=== PATIENT | female | born 1985 | race Two or more races ===

== ENCOUNTER 2019-07-26 08:04 | Inpatient (IN) | payer MEDICAID ==
[~2019-07-26] VITALS: Ht 152.4 cm; Wt 80.7 kg
[2019-07-26] MEDS ORDERED: IV RINGERS,LACTATED 500ML 500 ML IV PRN (09:00)
[2019-07-26] MEDS ORDERED: 0.9 % SODIUM CHLORIDE 10 ML DISP.SYRIN. IV PRN ×3 (09:00→16:30)
[2019-07-26 10:49] LABS: BILIRUBIN,URINE NEGATIVE (NEG); CLARITY,URINE CLEAR; COLOR,URINE YELLOW; NITRITE,URINE NEGATIVE (NEG); PH,URINE 6.5; PROTEIN,URINE NEGATIVE (NEG-TRACE)
[2019-07-26] MEDS ORDERED: OXYTOCIN 30 UNIT/500 ML PREMIX 500 ML IV PRN ×3 (11:00→16:30)
[2019-07-26] MEDS ORDERED: IBUPROFEN 400 MG TABLET. PO PRN (11:00)
[2019-07-26] MEDS ORDERED: fentaNYL PF VIAL 100 MCG/2 ML VIAL IV PRN (11:00)
[2019-07-26] MEDS ORDERED: TERBUTALINE 1 MG/ML VIAL. SQ PRN (11:00)
[2019-07-26] MEDS ORDERED: CITRIC ACID/SODIUM CITRATE 30 ML SOLUTION. PO ONE (11:00)
[2019-07-26] MEDS ORDERED: LIDOCAINE 1% PF 30 ML VIAL. INJ PRN (11:00)
[2019-07-26 11:05] LABS: SQUAMOUS EPITHELIAL CELL,UR MOD /LPF
[2019-07-26 11:06] LABS: BASO % 0 % (0-3); EOS % 0 % (0-3); HEMATOCRIT 35.6 % (36.0-47.0); HEMOGLOBIN 11.6 g/dL (12.0-15.5); LYMPH # 1.6 x10^3/uL (1.0-4.8); LYMPH % 26 % (24-48); MEAN CORPUSCULAR HEMOGLOBIN 26 pg (25-35); MEAN CORPUSCULAR HGB CONC 33 g/dL (31-37); MEAN CORPUSCULAR VOLUME 79 fL (79-100); MONO # 0.3 x10^3/uL (0.0-1.1); MONO % 5 % (0-9); NEUT # 4.2 x10^3/uL (1.8-7.7); NEUT % 69 % (31-73); PLATELET COUNT 137 x10^3/uL (140-400); RED BLOOD COUNT 4.51 x10^6/uL (3.50-5.40); RED CELL DISTRIBUTION WIDTH 17.3 % (11.5-14.5); WHITE BLOOD COUNT 6.1 x10^3/uL (4.0-11.0)
[2019-07-26 11:06] LABS: BACTERIA,URINE FEW /HPF (0-FEW); RBC,URINE OCC /HPF (0-2)
[2019-07-26 11:07] LABS: YEAST,URINE PRESENT /HPF
[2019-07-26] MEDS ORDERED: AMPICILLIN SODIUM 2 GM in IV NORMAL SALINE 100ML 100 ML IV ONE (11:30)
[2019-07-26 12:54] LABS: ANISOCYTOSIS SLIGHT; PLT ESTIMATE DECREASED (ADEQUATE)
[2019-07-26 13:51] VITALS: BP 129/84
[2019-07-26] MEDS ORDERED: MORPHINE PF 10 MG/10 ML AMPUL. ONE (15:09)
[2019-07-26] MEDS ORDERED: OXYTOCIN 10 UNIT/ML VIAL. ONE (15:09)
[2019-07-26] MEDS ORDERED: PHENYLEPHRINE in 0.9% NACL PF 1 MG/10 ML SYRINGE. IV ONE (15:10)
[2019-07-26] MEDS ORDERED: fentaNYL PF VIAL 100 MCG/2 ML VIAL ONE (15:10)
[2019-07-26] MEDS ORDERED: KETOROLAC 30 MG/ML VIAL. IV PRN (15:15)
[2019-07-26] MEDS: AMPICILLIN SODIUM 1 GM in IV NORMAL SALINE 50ML 50 ML IV SCH ×2 (15:30→19:30)
[2019-07-26] MEDS ORDERED: ONDANSETRON PF 4 MG/2 ML VIAL. ONE (16:12)
--- NOTE | 2019-07-26 16:22 | PDOC ---
BRIEF OPERATIVE NOTE Pre-Op Diagnosis TIUP RLTC/S Post-Op Diagnosis Same Procedure Performed RLTC/S Surgeon Siobhan Rayon Winder None Anesthesia Type: General Blood Loss 800cc Specimens Obtained None Findings male 7#8oz Complications None ANTOINETTE CLEMENT MD Jul 26, 2019 16:22
[2019-07-26] MEDS ORDERED: MAGNESIUM HYDROXIDE 2,400 MG/30 ML ORAL.SUSP. PO PRN (16:30)
[2019-07-26] MEDS ORDERED: MMR per PROTOCOL. MC PRN (16:30)
[2019-07-26] MEDS ORDERED: ZOLPIDEM 5 MG TABLET. PO PRN (16:30)
[2019-07-26] MEDS ORDERED: diphenhydrAMINE ORAL ELIXIR 12.5 MG/5 ML ML PO PRN (16:30)
[2019-07-26] MEDS ORDERED: MAG HYDROX/ALUMINUM HYD/SIMETH 30 ML ORAL.SUSP PO PRN (16:30)
[2019-07-26] MEDS ORDERED: ONDANSETRON PF 4 MG/2 ML VIAL. IV PRN (16:30)
[2019-07-26] MEDS ORDERED: SIMETHICONE 80 MG TAB.CHEW PO PRN (16:30)
[2019-07-26] MEDS: FERROUS SULFATE 325 MG TABLET. PO SCH (17:00)
[2019-07-26] MEDS: IV RINGERS,LACTATED 1000ML 1,000 ML IV SCH ×2 (18:52→20:24)
[2019-07-26 21:30] VITALS: BP 122/80
[2019-07-26] MEDS ORDERED: ceFAZolin SODIUM 1 GM in IV DEXTROSE 5% 50 ML IV SCH (22:00)
[2019-07-26] MEDS: IBUPROFEN 400 MG TABLET. PO SCH (22:00)
[2019-07-26 22:30] VITALS: BP 113/70
[2019-07-26] MEDS: ceFAZolin SODIUM IV Push 1 GM VIAL. IVP SCH (23:42)
[2019-07-27] MEDS: IV RINGERS,LACTATED 1000ML 1,000 ML IV SCH ×3 (02:52→15:30)
[2019-07-27] MEDS: IBUPROFEN 400 MG TABLET. PO SCH ×3 (05:11→15:08)
[2019-07-27 05:14] LABS: BASO % 0 % (0-3); EOS % 0 % (0-3); HEMATOCRIT 29.1 % (36.0-47.0); HEMOGLOBIN 9.5 g/dL (12.0-15.5); LYMPH # 1.5 x10^3/uL (1.0-4.8); LYMPH % 21 % (24-48); MEAN CORPUSCULAR HEMOGLOBIN 26 pg (25-35); MEAN CORPUSCULAR HGB CONC 33 g/dL (31-37); MEAN CORPUSCULAR VOLUME 79 fL (79-100); MONO # 0.4 x10^3/uL (0.0-1.1); MONO % 6 % (0-9); NEUT # 5.2 x10^3/uL (1.8-7.7); NEUT % 72 % (31-73); PLATELET COUNT 106 x10^3/uL (140-400); RED CELL DISTRIBUTION WIDTH 18.1 % (11.5-14.5); WHITE BLOOD COUNT 7.2 x10^3/uL (4.0-11.0)
[2019-07-27 05:30] VITALS: BP 117/65
[2019-07-27] MEDS: ceFAZolin SODIUM IV Push 1 GM VIAL. IVP SCH ×2 (07:51→16:10)
[2019-07-27 07:56] VITALS: BP 105/61
[2019-07-27] MEDS: oxyCODONE/APAP 5/325 1 TAB TABLET PO PRN ×2 (08:35→20:01)
[2019-07-27] MEDS: FERROUS SULFATE 325 MG TABLET. PO SCH ×2 (10:22→16:59)
[2019-07-27] MEDS: DOCUSATE SODIUM 100 MG CAPSULE. PO PRN ×2 (10:22→16:59)
[2019-07-27 12:27] VITALS: BP 130/75
[2019-07-27] MEDS ORDERED: DIPHTH,PERTUSS(ACELL),TET TOX 0.5 ML DISP.SYRIN. VAX IM ONE (12:30)
[2019-07-27] MEDS ORDERED: FLU VAX QS 2019-20 (36MOS+)/PF 0.5 ML SYRINGE. VAX IM ONE (13:00)
--- NOTE | 2019-07-27 13:28 | PDOC ---
Provider Note Provider Note No complaints VSS Dressing CDI FU in AM Vital Sign - Last 24 Hours 07/26/19 07/26/19 07/26/19 07/26/19 13:51 21:30 21:30 22:30 Temp 98.4 99.0 98.6 98.4 99.0 98.6 Pulse 92 94 96 Resp 18 14 14 B/P (MAP) 129/84 (99) 122/80 (94) 113/70 (84) Pulse Ox 99 99 O2 Delivery Room Air Room Air Room Air 07/27/19 07/27/19 07/27/19 07/27/19 05:30 07:56 08:35 09:21 Temp 98.8 98.7 98.8 98.7 Pulse 99 103 Resp 16 16 16 B/P (MAP) 117/65 (82) 105/61 (76) Pulse Ox 98 97 97 O2 Delivery Room Air Room Air Room Air Room Air 07/27/19 07/27/19 12:02 12:27 Temp 97.7 97.7 Pulse 80 Resp 16 18 B/P (MAP) 130/75 (93) Pulse Ox 97 97 O2 Delivery Room Air Room Air Intake and Output 07/26/19 07/26/19 07/27/19 15:00 23:00 07:00 Intake Total 400 ml Output Total 800 ml Balance -400 ml CBC - BMP 07/27/19 04:15 ANTOINETTE CLEMENT MD Jul 27, 2019 13:28
[2019-07-27 15:28] VITALS: BP 126/60
[2019-07-27 19:50] VITALS: BP 133/90
[2019-07-27 23:17] VITALS: BP 141/84
[2019-07-28] MEDS: IBUPROFEN 400 MG TABLET. PO SCH ×3 (01:23→19:45)
[2019-07-28] MEDS: oxyCODONE/APAP 5/325 1 TAB TABLET PO PRN ×5 (01:23→22:51)
[2019-07-28 05:25] VITALS: BP 138/91
[2019-07-28] MEDS: DOCUSATE SODIUM 100 MG CAPSULE. PO PRN ×2 (05:26→17:39)
[2019-07-28] MEDS: FERROUS SULFATE 325 MG TABLET. PO SCH ×2 (08:25→17:39)
[2019-07-28 10:28] VITALS: BP 145/87
--- NOTE | 2019-07-28 11:53 | PDOC ---
OB Progress Note Date of Service 07/28/19 Time of Evaluation 1150 Notes Pt. feeling well. No complaints. Lab Laboratory Tests Test 07/27/19 04:15 White Blood Count 7.2 x10^3/uL (4.0-11.0) Red Blood Count 3.70 x10^6/uL (3.50-5.40) Hemoglobin 9.5 g/dL (12.0-15.5) Hematocrit 29.1 % (36.0-47.0) Mean Corpuscular Volume 79 fL (79-100) Mean Corpuscular Hemoglobin 26 pg (25-35) Mean Corpuscular Hemoglobin Concent 33 g/dL (31-37) Red Cell Distribution Width 18.1 % (11.5-14.5) Platelet Count 106 x10^3/uL (140-400) Neutrophils (%) (Auto) 72 % (31-73) Lymphocytes (%) (Auto) 21 % (24-48) Monocytes (%) (Auto) 6 % (0-9) Eosinophils (%) (Auto) 0 % (0-3) Basophils (%) (Auto) 0 % (0-3) Neutrophils # (Auto) 5.2 x10^3/uL (1.8-7.7) Lymphocytes # (Auto) 1.5 x10^3/uL (1.0-4.8) Monocytes # (Auto) 0.4 x10^3/uL (0.0-1.1) Eosinophils # (Auto) 0.0 x10^3/uL (0.0-0.7) Basophils # (Auto) 0.0 x10^3/uL (0.0-0.2) Medications Current Medications Sodium Chloride (Normal Saline Flush) 3 ml QSHIFT PRN IV AFTER MEDS AND BLOOD DRAWS; Start 07/26/19 at 09:00; Stop 07/27/19 at 09:43; Status DC Ringer's Solution 500 ml @ 500 mls/hr PRN 1X PRN IV CALL MD IF GIVEN; Start 07/26/19 at 09:00 Sodium Chloride (Normal Saline Flush) 3 ml QSHIFT PRN IV AFTER MEDS AND BLOOD DRAWS; Start 07/26/19 at 11:00; Stop 07/27/19 at 09:43; Status DC Ringer's Solution 1,000 ml @ 125 mls/hr Q8H IV Last administered on 07/27/19at 15:30; Start 07/26/19 at 10:52 Fentanyl Citrate (Fentanyl 2ml Vial) 100 mcg PRN Q30MIN PRN IV Severe pain; Start 07/26/19 at 11:00 Terbutaline Sulfate (Brethine) 0.25 mg 1X PRN PRN SQ SEE COMMENTS; Start 07/26/19 at 11:00; Stop 07/27/19 at 10:59; Status DC Lidocaine HCl (Xylocaine 1% Pf 30ml Vial) 30 ml 1X PRN PRN INJ SEE COMMENTS; Start 07/26/19 at 11:00; Stop 07/28/19 at 10:59; Status DC Oxytocin/Sodium Chloride 500 ml @ 0 mls/hr CONT PRN IV SEE I/O RECORD; Start 07/26/19 at 11:00; Stop 07/28/19 at 10:25; Status DC Oxytocin/Sodium Chloride 500 ml @ 0 mls/hr CONT PRN PRN IV Post delivery bleeding; Start 07/26/19 at 11:00 Ibuprofen (Motrin) 800 mg PRN Q6HRS PRN PO PAIN; Start 07/26/19 at 11:00; Stop 07/28/19 at 10:25; Status DC Cefazolin Sodium/ Dextrose 50 ml @ 100 mls/hr 1X ONCE IV Last administered on 07/26/19at 15:09; Start 07/26/19 at 11:00; Stop 07/26/19 at 11:29; Status DC Citric Acid/ Sodium Citrate (Bicitra) 30 ml 1X ONCE PO Last administered on 07/26/19at 15:05; Start 07/26/19 at 11:00; Stop 07/26/19 at 11:06; Status DC Ampicillin Sodium 2 gm/Sodium Chloride 100 ml @ 200 mls/hr 1X ONCE IV Last administered on 07/26/19at 11:57; Start 07/26/19 at 11:30; Stop 07/26/19 at 11:59; Status DC Ampicillin Sodium 1 gm/Sodium Chloride 50 ml @ 100 mls/hr Q4H IV ; Start 07/26/19 at 15:30; Stop 07/26/19 at 22:17; Status DC Oxytocin (Pitocin) 10 unit STK-MED ONCE .ROUTE ; Start 07/26/19 at 15:09; Stop 07/26/19 at 15:09; Status DC Morphine Sulfate (Morphine Preservative Free) 10 mg STK-MED ONCE .ROUTE ; Start 07/26/19 at 15:09; Stop 07/26/19 at 15:10; Status DC Fentanyl Citrate (Fentanyl 2ml Vial) 100 mcg STK-MED ONCE .ROUTE ; Start 07/26/19 at 15:10; Stop 07/26/19 at 15:10; Status DC Ephedrine Sulfate (Akovaz) 50 mg STK-MED ONCE .ROUTE ; Start 07/26/19 at 15:10; Stop 07/26/19 at 15:10; Status DC Phenylephrine HCl (PHENYLEPHRINE in 0.9% NACL PF) 1 mg STK-MED ONCE IV ; Start 07/26/19 at 15:10; Stop 07/26/19 at 15:10; Status DC Ketorolac Tromethamine (Toradol 30mg Vial) 30 mg PRN Q6HRS PRN IV PAIN; Start 07/26/19 at 15:15; Stop 07/31/19 at 15:14 Ondansetron HCl (Zofran) 4 mg STK-MED ONCE .ROUTE ; Start 07/26/19 at 16:12; Stop 07/26/19 at 16:12; Status DC Sodium Chloride (Normal Saline Flush) 3 ml QSHIFT PRN IV AFTER MEDS AND BLOOD DRAWS; Start 07/26/19 at 16:30 Oxytocin/Sodium Chloride 500 ml @ 125 mls/hr CONT PRN IV EXCESSIVE POST- BLEEDING; Start 07/26/19 at 16:30; Stop 07/27/19 at 00:29; Status DC Ibuprofen (Motrin) 800 mg Q8HRS PO Last administered on 07/28/19at 10:28; Start 07/26/19 at 22:00 Ondansetron HCl (Zofran) 4 mg PRN Q6HRS PRN IV NAUSEA/VOMITING; Start 07/26/19 at 16:30 Docusate Sodium (Colace) 100 mg PRN BID PRN PO HARD STOOLS Last administered on 07/28/19at 05:26; Start 07/26/19 at 16:30 Magnesium Hydroxide (Milk Of Magnesia) 2,400 mg PRN DAILY PRN PO CONSTIPATION; Start 07/26/19 at 16:30 Al Hydroxide/Mg Hydroxide (Mylanta Plus Xs) 30 ml PRN Q4HRS PRN PO HEARTBURN / GAS; Start 07/26/19 at 16:30 Simethicone (Gas-X) 80 mg PRN AFTMEALHC PRN PO GAS / BLOATING Last administered on 07/27/19at 20:01; Start 07/26/19 at 16:30 Diphenhydramine HCl (Benadryl Oral Elixir) 12.5 mg PRN Q6HRS PRN PO ITCHING; Start 07/26/19 at 16:30 Ferrous Sulfate (Feosol) 325 mg BIDWMEALS PO Last administered on 07/28/19at 08:25; Start 07/26/19 at 17:00 Zolpidem Tartrate (Ambien) 5 mg PRN QHS PRN PO INSOMNIA, MAY REPEAT X1; Start 07/26/19 at 16:30 Info (Do NOT chart on this placeholder) 1 ea PRN 1X PRN MC SEE COMMENTS; Start 07/26/19 at 16:30 Info (Do NOT chart on this placeholder) 1 ea PRN 1X PRN MC SEE COMMENTS; Start 07/26/19 at 16:30 Oxycodone/ Acetaminophen (Percocet 5/325) 1 tab PRN Q4HRS PRN PO MILD PAIN 1-3 Last administered on 07/28/19at 10:27; Start 07/26/19 at 16:30 Oxycodone/ Acetaminophen (Percocet 5/325) 2 tab PRN Q4HRS PRN PO MODERATE PAIN, SEVERE PAIN Last administered on 07/28/19at 05:25; Start 07/26/19 at 16:30 Cefazolin Sodium 1 gm/Dextrose 50 ml @ 100 mls/hr Q8HRS IV ; Start 07/26/19 at 22:00; Status UNV Cefazolin Sodium (Ancef) 1 gm Q8H IVP Last administered on 07/27/19at 16:10; Start 07/26/19 at 23:00; Stop 07/27/19 at 15:01; Status DC Influenza Virus Vaccine Quadrival (Afluria Quad 2019-20 (3yr Up) Syringe) 0.5 ml ONCE ONCE VAX IM Last administered on 07/27/19at 15:07; Start 07/27/19 at 13:00; Stop 07/27/19 at 13:01; Status DC Diphtheria/ Tetanus/Acell Pertussis (Boostrix) 0.5 ml ONCE ONCE VAX IM Last administered on 07/27/19at 15:04; Start 07/27/19 at 12:30; Stop 07/27/19 at 12:31; Status DC Exam Abd: soft, non tender, fundus firm Prevena in place Assessment POD#2 s/p c/s Plan of Care: Continue current Tx, Mgmt KASHIF VALENTE Jr, MD Jul 28, 2019 11:53
[2019-07-28 17:43] VITALS: BP 120/73
[2019-07-28 20:21] VITALS: BP 118/80
[2019-07-29] MEDS: IBUPROFEN 400 MG TABLET. PO SCH ×2 (05:25→16:56)
[2019-07-29] MEDS: oxyCODONE/APAP 5/325 1 TAB TABLET PO PRN ×3 (05:25→21:58)
[2019-07-29] MEDS: DOCUSATE SODIUM 100 MG CAPSULE. PO PRN ×2 (05:26→16:56)
[2019-07-29 05:51] VITALS: BP 113/72
[2019-07-29 13:13] VITALS: BP 136/85
--- NOTE | 2019-07-29 17:12 | NUR ---
DISCHARGE DISCHARGE AND INCISIONAL CARE INSTRUCTIONS GIVEN AT THIS TIME PER BRAND MANAGER PHONE #[phone]. NO QUESTIONS OR CONCERNS NOTED. TO FOLLOW UP WITH DR CLEMENT IN 1 WEEK. WAITING FOR BABY TO BE DISCHARGED WILL CONTINUE TO MONITOR
[2019-07-29 21:00] VITALS: BP 119/69
[2019-07-30 04:30] VITALS: BP 133/79
[2019-07-30] MEDS: IBUPROFEN 400 MG TABLET. PO SCH (04:33)
[2019-07-30] MEDS: oxyCODONE/APAP 5/325 1 TAB TABLET PO PRN (04:34)
[2019-07-30] MEDS: DOCUSATE SODIUM 100 MG CAPSULE. PO PRN (08:09)
[2019-07-30] MEDS: FERROUS SULFATE 325 MG TABLET. PO SCH (08:09)
[2019-07-30 08:45] VITALS: BP 137/84
--- NOTE | 2019-07-30 09:13 | PDOC3 ---
OB DISCHARGE SUMMARY DATE OF ADMISSION: 07/27/19 DATE OF DISCHARGE: 07/30/19 REASON FOR ADMISSION: Onset of labor INTRAPARTUM PROCEDURES: : Low Cerv Trans DISCHARGE DIAGNOSIS: Term Delivered DISCHARGE INFORMATION: Activity (ad christine ), Diet (regular), Instructions (pelvic rest x 6 wks, no driving x 2 wks, no lifting> 20lbs. x 4 wks) HOSPITAL COURSE Term gestation with previous section presented in labor. She had repeat section without complications. KASHIF VALENTE Jr, MD Jul 30, 2019 09:13
[2019-07-30] MEDS ORDERED: DOCU100C28 PO (09:15)
[2019-07-30] MEDS ORDERED: FERR325T72 PO (09:15)
[2019-07-30] MEDS ORDERED: OXYC1TAB15 PO (09:15)
[2019-07-30] MEDS ORDERED: NAPR-514 PO (09:15)
--- NOTE | 2019-07-30 09:16 | DISCH ---
DISCHARGE INSTRUCTIONS Condition on Discharge Condition on Discharge: Stable Activity After Discharge Activity Instructions for Disc: Activity as tolerated Lifting Instructions after Dis: No heavy lifting Driving Instructions after Dis: No driving for 2 weeks Diet after Discharge Diet after Discharge: Regular Contacting the DRAide after DC Call your doctor for: Concerns you may have Follow-Up Follow up with: Dr. Mccann in 1 week KASHIF VALENTE Jr, MD Jul 30, 2019 09:16
[2019-07-30 11:00] VITALS: BP 121/89
--- NOTE | 2019-07-30 11:00 | NUR ---
Discharge medications reviewed through [facility] communications equipment operator #[id number]. Prescriptions given to patient. Pt in stable condition. Up and about. Pain controlled with PO meds, denies pain at present. Voiding and stooling. Tolerating food and fluids. Cesearean insicion clean and dry, well approximated. Fundus firm, lochia scant. Bonding well with .
--- NOTE | 2019-07-30 12:00 | NUR ---
ID checked. Discharged per WC with . Accompanied by and other family member. Escorted to car by nursing personnel.
--- NOTE | 2019-08-03 20:48 | PDOC1 ---
OB - History Hx of Present Care: Good Care Ultrasounds: Normal mid trimester US Obstetrical Complications: None Medical Complications: None Past Family/Social History * Past Medical, Surgical, Family and Obstetric Histories reviewed from chart. Blood Type: O+ Rubella: Immune RPR/VDRL: Negative GBS Status: Positive HBsAG: Negative OB - Chief Complaint & HPI Date of Admission: Date of Admission: Jul 26, 2019 at 08:04 Chief Complaint/History : 7 Para: 6 EDC: Jul 20, 2019 Reason for admission: section Indication for : desires repeat Admission Nurse Assessment Rev: Yes OB - Admission Exam Physical Exam HEENT: Normal, Nasal Mucosa Normal, Oropharynx Normal, Moist Membranes, Fontanelles Normal Heart: Regular Rate Lungs: Clear, Equal Abdomen: Gravid Extremities: Normal Pulses, No tenderness or swelling Reflexes: Normal Cervical Dilatation: None Effacement: 0% Station: Ballotable Membranes: Intact Heart Rate: Normal Accelerations: Accelerations Present Contractions on Admission: None Assessment/Plan Assessment/Plan TIUP Desires C/S ANTOINETTE CLEMENT MD Aug 03, 2019 20:48
--- NOTE | 2019-08-03 22:42 | OP ---
DATE OF SURGERY: 07/26/2019 PREOPERATIVE DIAGNOSES: Term intrauterine , desires repeat . POSTOPERATIVE DIAGNOSES: Term intrauterine , desires repeat . PROCEDURE: Repeat low transverse . SURGEON: Jayy Mccann MD MAP AND CHART MOUNTER: None. ANESTHESIA: Regional. ESTIMATED BLOOD LOSS: 800 mL. FINDINGS: Male , Apgars 8, 9 and 9; weight 7 pounds 8 ounces. COMPLICATIONS: None. CONDITION: Stable. SPECIMENS: None. DESCRIPTION OF PROCEDURE: After risks, benefits, indications, alternatives discussed in detail with the patient, the patient was brought to OR theater, placed in the supine position with left lateral uterine displacement. After adequate regional anesthesia, the patient was prepped and draped in usual sterile manner. Pfannenstiel incision was incised sharply with Bovie cautery, carried down through subcutaneous tissue with Bovie cautery. Rectus fascia was nicked in midline and extended laterally in each direction with Bovie cautery. Upper edge of rectus fascia was grasped x 2 with Chanell clamps. Rectus muscle both bluntly and sharply with gloved hand and Bovie cautery. The same procedure was performed on lower edge of rectus fascia. Rectus muscle was split in the midline, extended superiorly and inferiorly with Bovie cautery with care not to injure any underlying structures. Parietal peritoneum was entered bluntly with gloved hand. With gentle stretch on rectus muscle, room was made for delivery of the . Benigno retractor was placed within the pelvic cavity. Sponges placed in the gutters bilaterally. Low transverse hysterotomy incision was made sharply with a scalpel with care not to injure any underlying structures. This incision was extended laterally and upwardly with gloved hand. Gloved hand was placed within the lower uterine segment. Membranes had been ruptured. head was elevated with fundal pressure from the assistant restaurant general manager. was delivered on anterior abdominal wall. cried spontaneously with all extremities. Cord was doubly clamped, transected cord between 2 clamps. was handed to nursing care in attendance. Cord blood samples were taken, placenta delivered spontaneously intact, 3-vessel cord. Uterus was wiped free of any adherent membranes. The low transverse hysterotomy incision was reapproximated with 0 Monocryl in a running locking manner, imbricated with 0 Monocryl vertical mattress stitch fashion. Bladder flap was reapproximated with 3-0 Vicryl in a running manner. Sponges were removed from the gutters. Gutters were clean and dry. Benigno retractor was removed. Lower uterine segment was once again inspected and noted to be hemostatic. Rectus muscles reapproximated in the midline with 3-0 Vicryl horizontal mattress stitch fashion. Rectus muscles were hemostatic. No bleeding was noted. Rectus fascia was reapproximated with 0 PDS ____ self-retaining stitch. Subcutaneous tissue was irrigated copiously with warm normal saline. Skin was reapproximated with Insorb janelle. Sponge, needle and instrument counts were correct x 2 per nursing staff. The patient went to Postoperative Anesthesia Recovery in stable condition. JAYY MCCANN MD DR: NICOLA/iam JOB#: [id number] / [id number]
== END 2019-07-30 12:00 | disposition home or self-care (01) | DRG 787 ==
LOC: 3 SO LND 08:04 → OBSVTOIN 08:04 → 3 SO LND 18:05 → 3 NORTH 21:20
PROVIDERS: ADMIT Specialist; ATTEND Specialist
PROC: 10D00Z1 Extraction of Products of Conception, Low, Open Approach (ICD-10-PCS; principal; 2019-07-26)
DX: O34.219 Maternal care for unspecified type scar from previous cesarean delivery (principal); R71.0 Precipitous drop in hematocrit; O99.824 Streptococcus B carrier state complicating childbirth; Z37.0 Single live birth; Z3A.40 40 weeks gestation of pregnancy; O75.89 Other specified complications of labor and delivery
CPT/HCPCS: 36415; 81001; 85025; 86592; 86850; 86900; 86901; 87086; 90471; 90686; 90715; J0290; J0690; J0696; J2274; J2370; J2405; J2590; J3010; J7120; G0378